=== PATIENT | female | born 1950 | race American Indian/Alaskan Native ===

== ENCOUNTER 2017-08-26 16:33 | Inpatient (IN) | payer BC ==
--- NOTE | 2017-08-26 17:50 | Emergency Department Report ---
ED Dizziness HPI - General Chief Complaint: Dizziness Stated Complaint: ELEVATED BLOOD PRESSURE Time Seen by Provider: 08/26/17 16:59 Source: patient Mode of arrival: Ambulatory Limitations: No Limitations - History of Present Illness Initial Comments: Chief complaint dizziness History of present illness 67-year-old female history of high blood pressure has chronic kidney disease was at PCP this a.m. when had elevated blood pressure 200 over something PCP gave clonidine patient started getting dizzy was sent to ED for further evaluation patient denies chest pain denies focal neural complaints denies stiff neck or headache no sob no chest pain here stating that she wants to be checked because she was feeling a little dizzy after the blood pressure pills were given, pt is ckd and is in process of starting hd pmh:ckd htn sh no drug use ros complete review of systems otherwise negative review of systems no headache no stiff neck no chest pain mildly short of breath has swelling no exertional symptoms Physical exam Vital signs were 230/106 and the PCP repeat now after 2 of clonidine is 115/63 Generally she is awake alert oriented 3 nontoxic and afebr HEENT negative EOMI PERRLA Neck supple Chest mild crackle no distress Cardiac S1-S2 without murmur Abdomen soft nontender without mass Extremities are without clubbing cyanosis or edema Neuro strength is equal bilaterally sensory grossly nonfocal cranial nerves II- 12 intact no cerebellar fipsych nl Skin exam was noncontributory unremarkable ED course Case was discussed with Dr. Lamine ESCAMILLA [facility] for admission patient did have elevated potassium with evidence of uremia and elevated BUN/creatinine and is likely now a candidate for dialysis Clinical impression is end stage renal disease #1 #2 hyperkalemia Disposition is admitted Complaint: dizziness -: Gradual, This afternoon History of Same: No History of Trauma: No Severity: Unable to Determine Associated Symptoms: denies other symptoms - Related Data Allergies Allergy/AdvReac Type Severity Reaction Status Date / Time No Known Allergies Allergy Unverified 08/26/17 16:35 ED Review of Systems ROS: Stated complaint: ELEVATED BLOOD PRESSURE Other details as noted in HPI ED Past Medical Hx - Past Medical History Previous Medical History?: Yes Hx Hypertension: Yes Hx Diabetes: Yes Hx Renal Disease: Yes Additional medical history: high cholestrol - Surgical History Past Surgical History?: Yes Additional Surgical History: foot surgery ED Physical Exam - General Limitations: No Limitations ED Course Vital Signs 08/26/17 08/26/17 08/26/17 16:33 16:35 17:44 Temperature 97.5 F L Pulse Rate 72 75 83 Respiratory 16 18 21 Rate Blood Pressure 146/60 146/60 O2 Sat by Pulse 100 100 Oximetry 08/26/17 17:45 Temperature Pulse Rate 84 Respiratory 20 Rate Blood Pressure O2 Sat by Pulse Oximetry - Reevaluation(s) Reevaluation #1: 08/26/17 19:30 pt was given kayex and d50 and insulin given elev K+, pt is admitted dr servin ED Medical Decision Making - Lab Data Result diagrams: 08/26/17 17:12 08/26/17 17:12 - EKG Data -: EKG Interpreted by Me EKG shows normal: sinus rhythm - EKG Data Interpretation: nonspecific ST-T wave janey - Radiology Data Radiology results: image reviewed interpreted by me: no infiltates Critical care attestation.: If time is entered above; I have spent that time in minutes in the direct care of this critically ill patient, excluding procedure time. ED Disposition Clinical Impression: Hyperkalemia, ESRD (end stage renal disease) Disposition: OP ADMIT IP TO THIS HOSP Is pt being admited?: Yes Does the pt Need Aspirin: No Condition: Stable Referrals: MAYNOR PEÑA MD [Primary Care Provider] - 3-5 Days Time of Disposition: 19:31
[2017-08-26 17:54] LABS: Eosinophils % (Auto) 3.9 % (0.0-4.3); Hematocrit 25.4 % (30.3-42.9); Hemoglobin 8.2 gm/dl (10.1-14.3); Mean Corpuscular HGB Conc 32 % (30-34); Mean Corpuscular Hemoglobin 28 pg (28-32); Mean Corpuscular Volume 86 fl (79-97); Platelet Count 376 K/mm3 (140-440); Red Blood Count 2.96 M/mm3 (3.65-5.03); Red Cell Distribution Width 18.1 % (13.2-15.2); White Blood Count 6.3 K/mm3 (4.5-11.0)
[2017-08-26 18:11] LABS: Calcium 6.5 mg/dL (8.4-10.2); Chloride 98.4 mmol/L (98-107); Potassium 5.4 mmol/L (3.6-5.0)
--- NOTE | 2017-08-26 18:17 | XRay Report ---
FINAL REPORT PROCEDURE: Chest. TECHNIQUE: PA and lateral views. HISTORY: Dizziness. COMPARISON: No prior studies are available for comparison. FINDINGS: The heart size is normal. There is mild tortuosity of the thoracic aorta. The lungs are clear and well expanded. There are no pleural effusions. The soft tissues and regional skeleton are unremarkable. IMPRESSION: No evidence of acute disease.
[2017-08-26] MEDS ORDERED: PROVENTIL IH ONE (18:28)
[2017-08-26] MEDS ORDERED: D50W (25GM) Syringe IV ONE ×2 (18:29→20:07)
[2017-08-26] MEDS ORDERED: KIONEX PO ONE (18:30)
--- NOTE | 2017-08-26 19:41 | History and Physical Report ---
History of Present Illness Date of examination: 08/26/17 Date of admission: 08/26/17 Chief complaint: Dizziness 1 day History of present illness: 67 y/o Female with Hx of Htn CKD stg5 going on to ESRD comes in for feeling Dizzy.Went to her pcp and was found to have Mp of 230/130.Was sent here for Eval.Per Nephro;nithin notes patient is due for vascath as out patient and possible HD KRYSTAL. Sob present. No Chest pain Past History Past Medical History: diabetes, ESRD, hypertension, renal failure Social history: no significant social history, full code Family history: hypertension Medications and Allergies Allergies Allergy/AdvReac Type Severity Reaction Status Date / Time No Known Allergies Allergy Unverified 08/26/17 16:35 Home Medications Medication Instructions Recorded Confirmed Last Taken Type Insulin Aspart [Novolog] See Protocol SQ AC 08/26/17 08/26/17 Unknown History Insulin Glargine,Hum.rec.anlog 25 units SQ QHS 08/26/17 08/26/17 Unknown History [Lantus] amLODIPine [Norvasc] 5 mg PO DAILY 08/26/17 08/26/17 Unknown History hydrALAZINE [Apresoline] 50 mg PO QDAY 08/26/17 08/26/17 Unknown History Review of Systems All systems: negative Exam - Constitutional Vitals: Temp Pulse Resp BP Pulse Ox 97.5 F L 84 20 146/60 100 08/26/17 16:35 08/26/17 17:45 08/26/17 17:45 08/26/17 16:35 08/26/17 16:35 General appearance: Present: no acute distress, well-nourished - EENT Eyes: Present: PERRL ENT: hearing intact, clear oral mucosa - Neck Neck: Present: supple, normal ROM - Respiratory Respiratory effort: normal Respiratory: bilateral: CTA - Cardiovascular Heart Sounds: Present: S1 & S2. Absent: rub, click - Extremities Extremities: pulses symmetrical, No edema Peripheral Pulses: within normal limits - Abdominal General gastrointestinal: Present: soft, non-tender, non-distended, normal bowel sounds Female genitourinary: Present: normal - Integumentary Integumentary: Present: clear, warm, dry - Musculoskeletal Musculoskeletal: gait normal, strength equal bilaterally - Psychiatric Psychiatric: appropriate mood/affect, intact judgment & insight - Neurologic Neurologic: CNII-XII intact, moves all extremities Results - Labs CBC & Chem 7: 08/27/17 04:47 08/27/17 04:47 Labs: Laboratory Last Values WBC 6.3 K/mm3 (4.5-11.0) 08/26/17 17:12 RBC 2.96 M/mm3 (3.65-5.03) L 08/26/17 17:12 Hgb 8.2 gm/dl (10.1-14.3) L 08/26/17 17:12 Hct 25.4 % (30.3-42.9) L 08/26/17 17:12 MCV 86 fl (79-97) 08/26/17 17:12 MCH 28 pg (28-32) 08/26/17 17:12 MCHC 32 % (30-34) 08/26/17 17:12 RDW 18.1 % (13.2-15.2) H 08/26/17 17:12 Plt Count 376 K/mm3 (140-440) 08/26/17 17:12 Lymph % (Auto) 18.3 % (13.4-35.0) 08/26/17 17:12 Wayne % (Auto) 8.7 % (0.0-7.3) H 08/26/17 17:12 Eos % (Auto) 3.9 % (0.0-4.3) 08/26/17 17:12 Baso % (Auto) 1.0 % (0.0-1.8) 08/26/17 17:12 Lymph # 1.1 K/mm3 (1.2-5.4) L 08/26/17 17:12 Wayne # 0.5 K/mm3 (0.0-0.8) 08/26/17 17:12 Eos # 0.2 K/mm3 (0.0-0.4) 08/26/17 17:12 Baso # 0.1 K/mm3 (0.0-0.1) 08/26/17 17:12 Seg Neutrophils % 68.1 % (40.0-70.0) 08/26/17 17:12 Seg Neutrophils # 4.3 K/mm3 (1.8-7.7) 08/26/17 17:12 Sodium 132 mmol/L (137-145) L 08/26/17 17:12 Potassium 5.4 mmol/L (3.6-5.0) H 08/26/17 17:12 Chloride 98.4 mmol/L (98-107) 08/26/17 17:12 Carbon Dioxide 11 mmol/L (22-30) L 08/26/17 17:12 Anion Gap 28 mmol/L 08/26/17 17:12 BUN 89 mg/dL (7-17) H 08/26/17 17:12 Creatinine 9.9 mg/dL (0.7-1.2) H 08/26/17 17:12 Estimated GFR 5 ml/min 08/26/17 17:12 BUN/Creatinine Ratio 9 % 08/26/17 17:12 Glucose 168 mg/dL (65-100) H 08/26/17 17:12 Calcium 6.5 mg/dL (8.4-10.2) L 08/26/17 17:12 Troponin T 0.069 ng/mL (0.00-0.029) H 08/26/17 17:12 Triglycerides 343 mg/dL (2-149) H 08/26/17 17:12 Cholesterol 175 mg/dL (50-199) 08/26/17 17:12 LDL Cholesterol Direct 79 mg/dL (50-130) 08/26/17 17:12 HDL Cholesterol 28 mg/dL (40-59) L 08/26/17 17:12 Cholesterol/HDL Ratio 6.25 % 08/26/17 17:12 Short CBC 08/26/17 08/27/17 Range/Units 17:12 04:47 WBC 6.3 6.0 (4.5-11.0) K/mm3 Hgb 8.2 L 7.1 L (10.1-14.3) gm/dl Hct 25.4 L 21.0 L (30.3-42.9) % Plt Count 376 294 (140-440) K/mm3 [facility] 08/26/17 08/27/17 17:12 04:47 Sodium 132 L 137 Potassium 5.4 H 4.8 Chloride 98.4 103.3 Carbon Dioxide 11 L 13 L BUN 89 H 86 H Creatinine 9.9 H 9.9 H Glucose 168 H 155 H Calcium 6.5 L 6.9 L Cardiac Enzymes 08/26/17 08/26/1708/26/17 Range/Units 17:12 19:26 23:09 Troponin T 0.069 H 0.074 H 0.058 H D (0.00-0.029) ng/mL Liver Function 08/27/17 Range/Units 04:47 Total Bilirubin 0.20 (0.1-1.2) mg/dL AST 13 (5-40) units/L ALT 16 (7-56) units/L Alkaline Phosphatase 127 (35-129) units/L Albumin 3.1 L (3.9-5) g/dL - Imaging and Cardiology EKG: report reviewed Chest x-ray: report reviewed Assessment and Plan Advance Directives: Yes (full code) VTE prophylaxis?: Chemical Plan of care discussed with patient/family: Yes - Patient Problems (1) Hypertensive emergency Current Visit: Yes Status: Acute Plan to address problem: Added Carvediol Increased Hydralazine from once a day to q8h.Also increased Amlodipine to 10 mg po qd (2) Hyperkalemia Current Visit: Yes Status: Acute Plan to address problem: Was given Kayexalate and Clacium gluconate in Er (3) ESRD needing dialysis Current Visit: Yes Status: Chronic Plan to address problem: Patient needs emergent HD Renal and Vascular consulted for HD and Vascath respectively (4) IDDM (insulin dependent diabetes mellitus) Current Visit: Yes Status: Chronic Plan to address problem: Cont Home insulin and coverage (5) Elevated troponin level Current Visit: Yes Status: Chronic Plan to address problem: Sec to ESRD (6) Mixed hyperglyceridemia Current Visit: Yes Status: Chronic Plan to address problem: Added Fenofibrate (7) DVT prophylaxis Current Visit: Yes Status: Acute Plan to address problem: On Heparin
[2017-08-26] MEDS ORDERED: PERCOCET 5/325 PO PRN (19:47)
[2017-08-26] MEDS ORDERED: MILK OF MAGNESIA PO PRN (19:47)
[2017-08-26] MEDS ORDERED: DULCOLAX PR PRN (19:47)
[2017-08-26] MEDS ORDERED: MORPHINE IV PRN (19:47)
[2017-08-26] MEDS ORDERED: ZOFRAN IV PRN (19:47)
[2017-08-26] MEDS ORDERED: TYLENOL PO PRN (19:47)
[2017-08-26] MEDS ORDERED: NACL 0.9% 500 ML 500 ML IV ONE (20:07)
[2017-08-26] MEDS ORDERED: CALCIUM GLUCONATE 2,000 MG in NACL 0.9% 100 ML IV ONE (21:00)
[2017-08-26] MEDS: HEPARIN SUB-Q SCH (23:19)
[2017-08-27] MEDS ORDERED: APRESOLINE IV PRN (05:15)
[2017-08-27 06:01] LABS: Basophils % (Auto) 0.7 % (0.0-1.8); Eosinophils % (Auto) 1.4 % (0.0-4.3); Hemoglobin 7.1 gm/dl (10.1-14.3); Mean Corpuscular HGB Conc 34 % (30-34); Mean Corpuscular Hemoglobin 29 pg (28-32); Mean Corpuscular Volume 85 fl (79-97); Platelet Count 294 K/mm3 (140-440); Red Blood Count 2.48 M/mm3 (3.65-5.03); Red Cell Distribution Width 17.7 % (13.2-15.2)
[2017-08-27 06:28] LABS: Albumin 3.1 g/dL (3.9-5); Bilirubin,Total 0.2 mg/dL (0.1-1.2); Calcium 6.9 mg/dL (8.4-10.2); Chloride 103.3 mmol/L (98-107); Potassium 4.8 mmol/L (3.6-5.0); Total Protein 6.2 g/dL (6.3-8.2)
[2017-08-27] MEDS: NOVOLOG SUB-Q SCH ×4 (08:00→18:41)
[2017-08-27] MEDS ORDERED: APRESOLINE PO SCH (10:00)
[2017-08-27] MEDS ORDERED: NORVASC PO SCH (10:00)
[2017-08-27] MEDS: APRESOLINE PO SCH ×2 (10:58→18:41)
[2017-08-27] MEDS: NORVASC PO SCH (10:59)
[2017-08-27] MEDS: COREG PO SCH ×2 (11:00→21:37)
[2017-08-27] MEDS: HEPARIN SUB-Q SCH ×2 (11:00→21:36)
[2017-08-27] MEDS ORDERED: PNEUMOVAX 23 IM ONE (12:00)
--- NOTE | 2017-08-27 13:25 | Progress Note ---
Assessment and Plan /Hypertensive emergency Added Carvediol Increased Hydralazine from once a day to q8h. Also increased Amlodipine to 10 mg po qd cont to monitor BP meds and adjust as needed / Hyperkalemia due to renal failure Was given Kayexalate and Clacium gluconate in Er now improved /ESRD needing dialysis Patient may needs emergent HD Renal and Vascular consulted for HD and Vascath respectively /IDDM (insulin dependent diabetes mellitus) Cont Home insulin dose coverage /Elevated troponin level Sec to ESRD, denies any chest pain cont to trend, obtain 2d echo / Mixed hyperlipidemia Added Fenofibrate /DVT prophylaxis On Heparin Brief History: 67 y/o Female with Hx of Htn CKD stage 5 going on to ESRD Went to her pcp as she was feeling dizzy and was found to have BP of 230/130. She Was sent here for further Eval. Per Nephroogy notes patient is due for vascath as out patient and possible HD [facility]. Physical exam: General appearance: Present: no acute distress, well-nourished - EENT Eyes: Present: PERRL ENT: hearing intact, clear oral mucosa - Neck Neck: Present: supple, normal ROM - Respiratory Respiratory effort: normal Respiratory: bilateral: CTA - Cardiovascular Heart Sounds: Present: S1 & S2. Absent: rub, click - Extremities Extremities: pulses symmetrical, No edema Peripheral Pulses: within normal limits - Abdominal General gastrointestinal: Present: soft, non-tender, non-distended, normal bowel sounds Female genitourinary: Present: normal - Integumentary Integumentary: Present: clear, warm, dry - Musculoskeletal Musculoskeletal: gait normal, strength equal bilaterally - Psychiatric Psychiatric: appropriate mood/affect, intact judgment & insight - Neurologic Neurologic: CNII-XII intact, moves all extremities Subjective Date of service: 08/27/17 Interval history: Pt seen and examined updated family at bedside renal consult pending BP much improved, denies any chest pain Objective - Constitutional Vitals: Vital Signs - 12hr 08/27/17 08/27/17 08/27/17 04:28 09:12 10:58 Temperature 98.8 F 98.9 F Pulse Rate 92 H 92 H 92 H Respiratory 18 18 Rate Blood Pressure 181/82 157/67 Blood Pressure 157/67 [Right] O2 Sat by Pulse 98 99 Oximetry 08/27/17 08/27/17 10:59 13:05 Temperature 98.2 F Pulse Rate 99 H Respiratory 20 Rate Blood Pressure 157/67 Blood Pressure 136/60 [Right] O2 Sat by Pulse 99 Oximetry - Labs CBC & Chem 7: 08/28/17 06:20 08/28/17 06:20 Labs: Abnormal lab results 08/26/17 08/26/17 08/26/17 Range/Units 16:42 17:12 17:12 RBC 2.96 L (3.65-5.03) M/mm3 Hgb 8.2 L (10.1-14.3) gm/dl Hct 25.4 L (30.3-42.9) % RDW 18.1 H (13.2-15.2) % Daniels % (Auto) 8.7 H (0.0-7.3) % Lymph # 1.1 L (1.2-5.4) K/mm3 Sodium 132 L (137-145) mmol/L Potassium 5.4 H (3.6-5.0) mmol/L Carbon Dioxide 11 L (22-30) mmol/L BUN 89 H (7-17) mg/dL Creatinine 9.9 H (0.7-1.2) mg/dL Glucose 168 H (65-100) mg/dL POC Glucose 202 H (70-105) Hemoglobin A1c (4-6) % Calcium 6.5 L (8.4-10.2) mg/dL Troponin T 0.069 H (0.00-0.029) ng/mL Total Protein (6.3-8.2) g/dL Albumin (3.9-5) g/dL Triglycerides 343 H (2-149) mg/dL HDL Cholesterol 28 L (40-59) mg/dL 08/26/17 08/26/17 08/26/17 Range/Units 17:12 19:26 19:39 RBC (3.65-5.03) M/mm3 Hgb (10.1-14.3) gm/dl Hct (30.3-42.9) % RDW (13.2-15.2) % Daniels % (Auto) (0.0-7.3) % Lymph # (1.2-5.4) K/mm3 Sodium (137-145) mmol/L Potassium (3.6-5.0) mmol/L Carbon Dioxide (22-30) mmol/L BUN (7-17) mg/dL Creatinine (0.7-1.2) mg/dL Glucose (65-100) mg/dL POC Glucose 194 H (70-105) Hemoglobin A1c 6.7 H (4-6) % Calcium (8.4-10.2) mg/dL Troponin T 0.074 H (0.00-0.029) ng/mL Total Protein (6.3-8.2) g/dL Albumin (3.9-5) g/dL Triglycerides (2-149) mg/dL HDL Cholesterol (40-59) mg/dL 08/26/17 08/26/17 08/27/17 Range/Units 20:12 23:09 04:47 RBC 2.48 L (3.65-5.03) M/mm3 Hgb 7.1 L (10.1-14.3) gm/dl Hct 21.0 L (30.3-42.9) % RDW 17.7 H (13.2-15.2) % Daniels % (Auto) 9.1 H (0.0-7.3) % Lymph # (1.2-5.4) K/mm3 Sodium (137-145) mmol/L Potassium (3.6-5.0) mmol/L Carbon Dioxide (22-30) mmol/L BUN (7-17) mg/dL Creatinine (0.7-1.2) mg/dL Glucose (65-100) mg/dL POC Glucose 177 H (70-105) Hemoglobin A1c (4-6) % Calcium (8.4-10.2) mg/dL Troponin T 0.058 H D (0.00-0.029) ng/mL Total Protein (6.3-8.2) g/dL Albumin (3.9-5) g/dL Triglycerides (2-149) mg/dL HDL Cholesterol (40-59) mg/dL 08/27/17 08/27/17 Range/Units 04:47 09:03 RBC (3.65-5.03) M/mm3 Hgb (10.1-14.3) gm/dl Hct (30.3-42.9) % RDW (13.2-15.2) % Daniels % (Auto) (0.0-7.3) % Lymph # (1.2-5.4) K/mm3 Sodium (137-145) mmol/L Potassium (3.6-5.0) mmol/L Carbon Dioxide 13 L (22-30) mmol/L BUN 86 H (7-17) mg/dL Creatinine 9.9 H (0.7-1.2) mg/dL Glucose 155 H (65-100) mg/dL POC Glucose 112 H (70-105) Hemoglobin A1c (4-6) % Calcium 6.9 L (8.4-10.2) mg/dL Troponin T (0.00-0.029) ng/mL Total Protein 6.2 L (6.3-8.2) g/dL Albumin 3.1 L (3.9-5) g/dL Triglycerides (2-149) mg/dL HDL Cholesterol (40-59) mg/dL
[2017-08-27] MEDS: LEVEMIR SUB-Q SCH (21:38)
[2017-08-27] MEDS ORDERED: INSULIN GLARGINE HUM REC ANLOG 25 UNIT SQ SCH (22:00)
[2017-08-28] MEDS: APRESOLINE PO SCH ×3 (02:00→20:31)
[2017-08-28 06:43] LABS: Basophils % (Auto) 0.8 % (0.0-1.8); Eosinophils % (Auto) 3.1 % (0.0-4.3); Hematocrit 24.8 % (30.3-42.9); Mean Corpuscular HGB Conc 32 % (30-34); Mean Corpuscular Hemoglobin 28 pg (28-32); Mean Corpuscular Volume 86 fl (79-97); Platelet Count 312 K/mm3 (140-440); Red Blood Count 2.89 M/mm3 (3.65-5.03); Red Cell Distribution Width 18.5 % (13.2-15.2); White Blood Count 6.4 K/mm3 (4.5-11.0)
[2017-08-28 07:06] LABS: Calcium 6.5 mg/dL (8.4-10.2); Chloride 104.3 mmol/L (98-107); Potassium 4.8 mmol/L (3.6-5.0)
--- NOTE | 2017-08-28 09:59 | Consultation ---
History of Present Illness - History of Present Illness thank you for the consultation Patient was evaluated today Consultation report dictated patient well known to me Assessment and plan End-stage renal disease: Patient is a need for renal replacement therapy with a permacath subsequent to which she will also need a fistula created this admission to avoid infections resulting from permacath patient has been adequately counseled and educated so has her granddaughter patient is very noncompliant did not show after family care physician's office also did not come back for follow-up in our office was noted to have a creatinine of 10 with some symptoms of renal failure Anemia and renal failure: Erythropoietin with hemodialysis workup of renal failure as well as anemia Long-standing hypertension diabetes likely resulting in renal failure Outpatient dialysis unit will be at [facility] as patient lives closer to that and she wants to continue seeing her urologist and chooses to go to that facility, given choices Secondary hyperparathyroidism: To monitor and follow Patient receive adequate calcium education regarding end-stage renal disease, diet plan, lifestyle changes, need to initiate renal replacement therapy and Y, catheter care will discuss patient was also advised to consider fistula creation She is not a candidate for home therapy at this time knowing that she has been extremely noncompliant Past History Past Medical History: diabetes, ESRD, hypertension, renal failure Social history: no significant social history, full code Family history: hypertension Medications and Allergies Allergies Allergy/AdvReac Type Severity Reaction Status Date / Time No Known Allergies Allergy Unverified 08/26/17 16:35 Home Medications Medication Instructions Recorded Confirmed Last Taken Type Insulin Aspart [Novolog] See Protocol SQ AC 08/26/17 08/26/17 Unknown History Insulin Glargine,Hum.rec.anlog 25 units SQ QHS 08/26/17 08/26/17 Unknown History [Lantus] amLODIPine [Norvasc] 5 mg PO DAILY 08/26/17 08/26/17 Unknown History hydrALAZINE [Apresoline] 50 mg PO QDAY 08/26/17 08/26/17 Unknown History Active Meds: Active Medications Acetaminophen (Tylenol) 650 mg PO Q4H PRN PRN Reason: Pain MILD(1-3)/Fever >100.5/SOSA Amlodipine Besylate (Norvasc) 10 mg PO DAILY MURALI Last Admin: 08/27/17 10:59 Dose: 10 mg Bisacodyl (Dulcolax) 10 mg OR QDAY PRN PRN Reason: Constipation unrelieved by MOM Carvedilol (Coreg) 6.25 mg PO BID [facility] Last Admin: 08/27/17 21:37 Dose: 6.25 mg Heparin Sodium (Porcine) (Heparin) 5,000 unit SUB-Q Q12HR [facility] Last Admin: 08/27/17 21:36 Dose: 5,000 unit Hydralazine HCl (Apresoline) 5 mg IV Q6H PRN PRN Reason: Hypertension Hydralazine HCl (Apresoline) 50 mg PO Q8H [facility] Last Admin: 08/28/17 02:00 Dose: Not Given Insulin Aspart (Novolog) 0 units SUB-Q AC [facility] PRN Reason: Protocol Last Admin: 08/27/17 18:41 Dose: Not Given Insulin Detemir (Levemir) 25 units SUB-Q QHS [facility] Last Admin: 08/27/17 21:38 Dose: 25 units Magnesium Hydroxide (Milk Of Magnesia) 30 ml PO Q4H PRN PRN Reason: Constipation Morphine Sulfate (Morphine) 2 mg IV Q4H PRN PRN Reason: Pain, Moderate (4-6) Ondansetron HCl (Zofran) 4 mg IV Q8H PRN PRN Reason: N/V unrelieved by Reglan Oxycodone/Acetaminophen (Percocet 5/325) 1 tab PO Q6H PRN PRN Reason: Pain, Moderate (4-6) Pneumococcal Polyvalent Vaccine (Pneumovax 23) 0.5 ml IM .ONCE ONE Stop: 08/28/17 12:01 Exam - Vital Signs Vital signs: Vital Signs Pulse Resp BP Pulse Ox 72 16 146/60 100 08/26/17 16:33 08/26/17 16:33 08/26/17 16:33 08/26/17 16:33 Results - Lab Results 08/28/17 06:20 08/28/17 06:20 Most recent lab results Calcium 6.5 mg/dL (8.4-10.2) L 08/28/17 06:20
[2017-08-28] MEDS ORDERED: NACL 0.9% 100 ML IV PRN (10:30)
[2017-08-28] MEDS ORDERED: PNEUMOVAX 23 IM ONE (12:00)
[2017-08-28] MEDS: COREG PO SCH ×2 (13:20→22:15)
[2017-08-28] MEDS: HEPARIN SUB-Q SCH ×2 (13:33→22:23)
[2017-08-28] MEDS: NORVASC PO SCH (14:05)
[2017-08-28] MEDS: NOVOLOG SUB-Q SCH ×3 (14:07→20:31)
--- NOTE | 2017-08-28 15:51 | Progress Note ---
Assessment and Plan /Hypertensive emergency Added Carvediol Increased Hydralazine from once a day to q8h. Also increased Amlodipine to 10 mg po qd cont to monitor BP meds and adjust as needed / Hyperkalemia due to renal failure Was given Kayexalate and Clacium gluconate in Er now improved /ESRD needing dialysis Patient needs emergent HD Renal and Vascular consulted for HD and Vascath respectively Outpatient dialysis unit will be at [facility] as patient lives closer to that and she wants to continue seeing her urologist and chooses to go to that facility, given choices /IDDM (insulin dependent diabetes mellitus) Cont Home insulin dose coverage /Elevated troponin level Sec to ESRD, denies any chest pain cont to trend, 2d echo showed preserved EF / Mixed hyperlipidemia Added Fenofibrate /DVT prophylaxis On Heparin Brief History: 67 y/o Female with Hx of Htn CKD stage 5 going on to ESRD Went to her pcp as she was feeling dizzy and was found to have BP of 230/130. She Was sent here for further Eval. Per Nephroogy notes patient is due for vascat as out patient and possible HD KRYSTAL. Physical exam: General appearance: Present: no acute distress, well-nourished - EENT Eyes: Present: PERRL ENT: hearing intact, clear oral mucosa - Neck Neck: Present: supple, normal ROM - Respiratory Respiratory effort: normal Respiratory: bilateral: CTA - Cardiovascular Heart Sounds: Present: S1 & S2. Absent: rub, click - Extremities Extremities: pulses symmetrical, No edema Peripheral Pulses: within normal limits - Abdominal General gastrointestinal: Present: soft, non-tender, non-distended, normal bowel sounds Female genitourinary: Present: normal - Integumentary Integumentary: Present: clear, warm, dry - Musculoskeletal Musculoskeletal: gait normal, strength equal bilaterally - Psychiatric Psychiatric: appropriate mood/affect, intact judgment & insight - Neurologic Neurologic: CNII-XII intact, moves all extremities Subjective Date of service: 08/28/17 Interval history: Pt seen and examined updated family at bedside plan to start HD from tomorrow after vascular access placement BP much improved, denies any chest pain Objective - Constitutional Vitals: Vital Signs - 12hr 08/28/17 08/28/17 08/28/17 05:00 05:26 13:20 Temperature 98.6 F Pulse Rate 80 72 84 Respiratory 18 Rate Blood Pressure 149/70 O2 Sat by Pulse 99 Oximetry 08/28/17 08/28/17 13:26 14:05 Temperature Pulse Rate 88 80 Respiratory Rate Blood Pressure 179/83 O2 Sat by Pulse Oximetry - Labs CBC & Chem 7: 08/28/17 06:20 08/28/17 06:20 Labs: Abnormal lab results 08/27/17 08/27/17 08/28/17 Range/Units 11:02 21:41 06:20 RBC 2.89 L (3.65-5.03) M/mm3 Hgb 8.0 L (10.1-14.3) gm/dl Hct 24.8 L (30.3-42.9) % RDW 18.5 H (13.2-15.2) % Florence % (Auto) 8.3 H (0.0-7.3) % Lymph # 1.1 L (1.2-5.4) K/mm3 Seg Neutrophils % 70.6 H (40.0-70.0) % Carbon Dioxide (22-30) mmol/L BUN (7-17) mg/dL Creatinine (0.7-1.2) mg/dL POC Glucose 219 H 231 H (70-105) Calcium (8.4-10.2) mg/dL 08/28/17 08/28/17 Range/Units 06:20 12:17 RBC (3.65-5.03) M/mm3 Hgb (10.1-14.3) gm/dl Hct (30.3-42.9) % RDW (13.2-15.2) % Florence % (Auto) (0.0-7.3) % Lymph # (1.2-5.4) K/mm3 Seg Neutrophils % (40.0-70.0) % Carbon Dioxide 14 L (22-30) mmol/L BUN 93 H (7-17) mg/dL Creatinine 10.3 H (0.7-1.2) mg/dL POC Glucose 174 H (70-105) Calcium 6.5 L (8.4-10.2) mg/dL
[2017-08-28] MEDS: LEVEMIR SUB-Q SCH (22:15)
--- NOTE | 2017-08-28 22:54 | Consultation ---
TIME OF SERVICE: Around 10:00 in the morning. PERSON ASKING FOR CONSULTATION: Dr. Lyla Mireles REASON FOR CONSULTATION: Management of end-stage renal disease in a patient who is admitted here with uncontrolled hypertension. SOURCE OF INFORMATION: From herself as electronic records were reviewed. HISTORY OF PRESENT ILLNESS: The patient is a 67-year-old, very poorly compliant, -[place] patient who has been followed by Dr. Manuel for her routine healthcare. The patient did not go for followup for several months, but was followed by hematology, Dr. NIX who was giving her erythropoietin injection periodically. The patient was noted to have a creatinine of recently around 10 for which she was seen by Dr. Mcclendon, my partner, suggested her to come to the ER. The patient was seen here on Tuesday and then went home. Currently, she has been admitted here with the issues with blood pressure. The patient's estimated GFR is only 4 mL per minute and she is in immediate need for renal replacement therapy. Overtime, the patient has been feeling fatigued, tired and weak. She does not have any metallic taste, nausea and vomiting yet or at least she denies. The patient has been fully educated about the severity of renal failure and need to initiate renal replacement therapy in my previous discussion, which included catheter placement, fistula creation, hemodialysis and all the related process including dietary education. The patient still says that she feels fine and there is nothing wrong with her. PAST MEDICAL HISTORY: Significant for 1. Chronic noncompliance despite counseling and education. Discussed with her treating physicians core blower, Dr. Christianson who has been very concerned about her noncompliance, progressive renal failure and called us for the patient to be seen in the office as she refused to come to ER. 2. Diabetes mellitus type 2. 3. Hypertension. 4. Hyperlipidemia. CURRENT ALLERGIES: Reviewed. HOME MEDICATIONS: Reviewed. SOCIAL HISTORY: No recent history of alcohol, drugs, or tobacco use. FAMILY HISTORY: Essentially noncontributory for renal related disorder. REVIEW OF SYSTEMS: Positive for fatigue, weakness and feeling cold. No complaints of any nausea or vomiting yet, or at least the patient denies. Complete review of other systems are obtained, pertinent positive as mentioned above. Other review of systems negative. PHYSICAL EXAMINATION: GENERAL: The patient is a pleasant 67-year-old -[place] female who is lying comfortably in bed, does not appear in acute distress. Her granddaughter is at bedside. VITAL SIGNS: Reviewed from this admission. HEENT: Normocephalic, atraumatic skull. Extraocular movements intact. Moderate pallor present. Some uremic odor. NECK: Supple without thyromegaly. No mass or JVD. CHEST: Few faint basilar crackles. HEART: Regular rate and rhythm. S1, S2 are noted. ABDOMEN: Soft, nontender. No suprapubic masses. No CVA tenderness. EXTREMITIES: Reveals the patient does have 1+ edema and dry skin, some scratches. NEUROLOGIC: Alert, awake, oriented x 4. No asterixes present. LABORATORY DATA: Labs and x-rays were reviewed from this admission. ASSESSMENT AND PLAN: 1. End-stage renal disease in a patient who is a 67-year-old with EGFR of 4 mL per minute with anemia, fatigue and feeling cold. No nausea, vomiting yet. The patient is in immediate need for renal replacement therapy. She has received full counseling education regarding end-stage renal disease, catheter placement, fistula creation, diet plan has been discussed with the patient. Outpatient dialysis can be continued at [facility] per patient's choice as this facility is closer to where she lives and she wants to continue with our care. 2. Hypertension, will be difficult to control. We will adjust medications. 3. Anemia due to worsening renal failure over time, erythropoietin, further workup of anemia, iron, B12 and folic acid, retic count. 4. Diabetes type 2. Counseling and education was done. Diet plan was discussed, to follow up with her primary care physician upon discharge. We had a lengthy discussion with the patient as well as her granddaughter at bedside who broke in tears after knowing that her grandmother had such severe degree of renal failure. We also did discuss diet plan, lifestyle changes that are required. All questions pertinent to renal care were discussed and addressed today at bedside. Need for timely initiation of renal replacement therapy was also discussed with them. All questions were answered. Catheter-related bacteremia, infection, sepsis was also discussed which could be a possibility in the future as the patient never got a fistula and has not been compliant. This is needed at this admission to initiate her renal replacement therapy. Given that she is noncompliant at this time, I would like to abstain from peritoneal dialysis until the compliance has improved or resolved though she has been educated about peritoneal dialysis as well. Potentially she could be a transplant candidate but that time will tell. I will consult Vascular Surgery for a Perm-A-Cath as well as fistula placement in the meantime. Arrange for hemodialysis tomorrow morning. We will continue to follow and make recommendations from renal standpoint. JOB# [id number] EBONY/NTS
[2017-08-29] MEDS: APRESOLINE PO SCH ×3 (02:27→18:00)
[2017-08-29] MEDS: NOVOLOG SUB-Q SCH ×3 (07:30→16:30)
[2017-08-29 07:31] LABS: Calcium 6.3 mg/dL (8.4-10.2); Chloride 102.6 mmol/L (98-107); Potassium 4.7 mmol/L (3.6-5.0)
[2017-08-29] MEDS ORDERED: HEPARIN/NS 5000 UNIT/500ML(CATH LAB) 500 ML IR ONE (08:52)
[2017-08-29] MEDS ORDERED: NACL 0.9% 250ML 250 ML ONE (08:52)
[2017-08-29] MEDS ORDERED: SUBLIMAZE ONE (08:52)
[2017-08-29] MEDS ORDERED: XYLOCAINE 2% INFILTRATI ONE (08:52)
[2017-08-29] MEDS ORDERED: VERSED ONE (08:52)
--- NOTE | 2017-08-29 09:22 | Consultation ---
History of Present Illness - Reason for Consult Consult date: 08/29/17 ESRD - History of Present Illness Patient with a history of end-stage renal disease who now requires dialysis. Patient with no mental status changes at time of examination. No specific complaints. Past History Past Medical History: diabetes, ESRD, hypertension, renal failure Social history: no significant social history, full code Family history: hypertension Medications and Allergies Allergies Allergy/AdvReac Type Severity Reaction Status Date / Time No Known Allergies Allergy Unverified 08/26/17 16:35 Home Medications Medication Instructions Recorded Confirmed Last Taken Type Insulin Aspart [Novolog] See Protocol SQ AC 08/26/17 08/26/17 Unknown History Insulin Glargine,Hum.rec.anlog 25 units SQ QHS 08/26/17 08/26/17 Unknown History [Lantus] amLODIPine [Norvasc] 5 mg PO DAILY 08/26/17 08/26/17 Unknown History hydrALAZINE [Apresoline] 50 mg PO QDAY 08/26/17 08/26/17 Unknown History Active Meds: Active Medications Acetaminophen (Tylenol) 650 mg PO Q4H PRN PRN Reason: Pain MILD(1-3)/Fever >100.5/SOSA Amlodipine Besylate (Norvasc) 10 mg PO DAILY [facility] Last Admin: 08/28/17 14:05 Dose: 10 mg Bisacodyl (Dulcolax) 10 mg CO QDAY PRN PRN Reason: Constipation unrelieved by MOM Carvedilol (Coreg) 6.25 mg PO BID [facility] Last Admin: 08/28/17 22:15 Dose: 6.25 mg Heparin Sodium (Porcine) (Heparin) 5,000 unit SUB-Q Q12HR [facility] Last Admin: 08/28/17 22:23 Dose: 5,000 unit Hydralazine HCl (Apresoline) 5 mg IV Q6H PRN PRN Reason: Hypertension Hydralazine HCl (Apresoline) 50 mg PO Q8H [facility] Last Admin: 08/29/17 02:27 Dose: 50 mg Sodium Chloride (Nacl 0.9%) 100 mls @ 999 mls/hr IV JANETTE PRN PRN Reason: Hypotension Insulin Aspart (Novolog) 0 units SUB-Q AC [facility] PRN Reason: Protocol Last Admin: 08/29/17 07:30 Dose: Not Given Insulin Detemir (Levemir) 25 units SUB-Q QHS [facility] Last Admin: 08/28/17 22:15 Dose: Not Given Magnesium Hydroxide (Milk Of Magnesia) 30 ml PO Q4H PRN PRN Reason: Constipation Morphine Sulfate (Morphine) 2 mg IV Q4H PRN PRN Reason: Pain, Moderate (4-6) Ondansetron HCl (Zofran) 4 mg IV Q8H PRN PRN Reason: N/V unrelieved by Reglan Oxycodone/Acetaminophen (Percocet 5/325) 1 tab PO Q6H PRN PRN Reason: Pain, Moderate (4-6) Review of Systems All systems: negative Exam - Constitutional Vitals: Temp Pulse Resp BP Pulse Ox 99.0 F 80 18 159/75 98 08/29/17 08:16 08/29/17 08:16 08/29/17 08:16 08/29/17 08:16 08/29/17 08:16 General appearance: Present: no acute distress - EENT Eyes: Present: PERRL, EOM intact ENT: hearing intact - Neck Neck: Present: supple, normal ROM - Respiratory Respiratory effort: normal - Extremities Extremities: no ischemia - Abdominal General gastrointestinal: Present: deferred Female genitourinary: Present: deferred - Rectal Rectal Exam: deferred - Psychiatric Psychiatric: appropriate mood/affect, cooperative Results - Labs CBC & Chem 7: 08/28/17 06:20 08/29/17 06:45 Labs: Abnormal lab results 08/28/17 08/28/17 08/29/17 Range/Units 12:17 16:36 06:45 Carbon Dioxide 13 L (22-30) mmol/L BUN 91 H (7-17) mg/dL Creatinine 10.3 H (0.7-1.2) mg/dL Glucose 118 H (65-100) mg/dL POC Glucose 174 H 264 H (70-105) Calcium 6.3 L (8.4-10.2) mg/dL 08/29/17 Range/Units 08:21 Carbon Dioxide (22-30) mmol/L BUN (7-17) mg/dL Creatinine (0.7-1.2) mg/dL Glucose (65-100) mg/dL POC Glucose 125 H (70-105) Calcium (8.4-10.2) mg/dL Assessment and Plan Patient with a history of end-stage renal disease who requires dialysis. Following placement of a PermCath today, the patient will undergo venous mapping in anticipation of either fistula creation or graft placement.
[2017-08-29] MEDS ORDERED: ANCEF/STERILE WATER 2 GM/20 ML 2 GM/20 ML SYRINGE IV ONE (09:26)
--- NOTE | 2017-08-29 09:29 | Progress Note ---
Assessment and Plan - Patient Problems (1) ESRD (end stage renal disease) Current Visit: Yes Status: Acute Plan to address problem: HD -first treatment today. Avoid hypotension. No needle sticks in left arm - save veis for AVF. Adjust meds per renal function. Outpt HD at [facility] per pt. (2) Metabolic acidosis Current Visit: Yes Status: Acute Plan to address problem: place on bicarb supplements (3) IDDM (insulin dependent diabetes mellitus) Current Visit: Yes Status: Chronic (4) HTN (hypertension) Current Visit: Yes Status: Acute (5) Hypocalcemia Current Visit: Yes Status: Acute Plan to address problem: check ionised Ca,P,PTH--place on Ca supplements (6) Hypoalbuminemia Current Visit: Yes Status: Acute Plan to address problem: increase dietary protein intake Subjective Date of service: 08/29/17 Interval history: alert, oriented, had IJ tunneled catheter today for initiation of HD Objective - Vital Signs Vital signs: Vital Signs - 12hr 08/28/17 08/29/17 08/29/17 23:56 05:02 08:16 Temperature 98.7 F 98.2 F 99.0 F Pulse Rate 84 82 80 Respiratory 18 18 18 Rate Blood Pressure 155/66 156/67 159/75 O2 Sat by Pulse 96 96 98 Oximetry - General Appearance General appearance: well-developed EENT: mucous membranes moist Neck: no JVD Respiratory: Present: Decreased Breath Sounds Cardiology: regular, systolic murmur Gastrointestinal: normoactive bowel sounds Neurologic: alert and oriented x3 Psychiatric: mood/affect appropriate, cooperative - Lab 08/28/17 06:20 08/29/17 06:45 Most recent lab results Calcium 6.3 mg/dL (8.4-10.2) L 08/29/17 06:45
[2017-08-29] MEDS: HEPARIN 10,000 UNITS/10 ML ONE ×3 (09:36→09:44)
--- NOTE | 2017-08-29 09:51 | Operative Report ---
Operative Report Operative Report: EXAM: ULTRASOUND AND FLUOROSCOPIC GUIDED PLACEMENT OF TUNNELED HEMODIALYSIS CATHETER CLINICAL INDICATION: END-STAGE RENAL DISEASE REQUIRING DIALYSIS ACCESS DATE: 08/29/2017 PROCEDURE: Following an explanation of the risks, benefits and alternatives; written informed consent was obtained. The patient was brought to the injury graphic suite and placed in supine position on the examination table. Initial ultrasound evaluation of the neck demonstrated a patent right internal jugular vein. The patient's right neck and chest wall were prepped and draped in the usual sterile fashion. 1% lidocaine was used for anesthesia. Under ultrasound guidance, the right internal jugular vein was cannulated with a 7 cm 18-gauge needle. A 0.035 guidewire was advanced into the IVC under fluoroscopy to document intravenous positioning. The needle was removed. An appropriate catheter exit site was chosen along the lateral right chest wall. 1% lidocaine was used for anesthesia at the catheter exit site and along the tunnel tract. A Bard 23 cm glidepath tunneled hemodialysis catheter was then tunneled antegrade from the catheter exit site to the venotomy site. Following serial dilation over the guidewire under fluoroscopy, a 16 [place] peel -away sheath was placed over the guidewire under fluoroscopy. The trocar and guidewire were removed and the catheter inserted through the peel-away sheath. The catheter would not advance past the level of the innominate vein. The guidewire was then reinserted through the catheter and advanced into the IVC and using the wire as an anchor, the catheter was able to be advanced more centrally. The peel-away sheath was then removed. The catheter was positioned with the tip in the proximal right atrium and the guidewire was removed. The venotomy was closed using 3-0 Vicryl suture and Dermabond. 3-0 Vicryl suture and Dermabond were also applied to the catheter exit site. Both ports flushed and aspirated easily and were then locked with appropriate volumes of heparin. The catheter was then sterilely dressed. The patient tolerated the procedure well. There were no immediate post procedure complications. Conscious sedation was performed under the guidance of radiologic nursing. Continuous cardiopulmonary monitoring was utilized. IMPRESSION: 1) Ultrasound and fluoroscopic guided placement of tunneled hemodialysis catheter via the right internal jugular vein.
[2017-08-29] MEDS: COREG PO SCH ×2 (13:25→21:51)
[2017-08-29] MEDS: NORVASC PO SCH (13:26)
[2017-08-29] MEDS: HEPARIN SUB-Q SCH ×2 (13:27→21:51)
--- NOTE | 2017-08-29 19:29 | Progress Note ---
Assessment and Plan - Hypertensive emergency Controlled Bp with Carvediol, Hydralazine from once a day to q8h and Amlodipine to 10 mg po qd cont to monitor BP meds and adjust as needed - Hyperkalemia corrected Was given Kayexalate and Clacium gluconate in Er - ESRD needing dialysis Patient needs emergent HD Had Vascular place today [facility]. HD commmmnece today Outpatient dialysis unit will be at [facility] as patient lives closer to that and she wants to continue seeing her urologist and chooses to go to that facility, given choices - IDDM (insulin dependent diabetes mellitus) SSI and Cont Home insulin dose coverage - Elevated troponin level Sec to ESRD, denies any chest pain cont to trend, 2d echo showed preserved EF - Mixed hyperlipidemia Added Fenofibrate -DVT prophylaxis On Heparin Subjective Date of service: 08/29/17 Principal diagnosis: Hypertensive emergency, ESRD commenceing HD Interval history: Denies any chest pain or shortness of breath Objective - Constitutional Vitals: Vital Signs - 12hr 08/29/17 08/29/17 08/29/17 08:16 11:55 16:27 Temperature 99.0 F 97.8 F Pulse Rate 80 78 83 Respiratory 18 18 18 Rate Blood Pressure 159/75 179/78 133/55 O2 Sat by Pulse 98 99 99 Oximetry General appearance: Present: no acute distress, well-nourished - EENT Eyes: PERRL, EOM intact - Neck Neck: supple, normal ROM - Respiratory Respiratory effort: normal Respiratory: bilateral: CTA - Breasts Breasts: normal - Cardiovascular Rhythm: regular Heart Sounds: Present: S1 & S2. Absent: gallop, rub Extremities: pulses intact, No edema, normal color, Full ROM - Gastrointestinal General gastrointestinal: Present: soft, non-tender, non-distended, normal bowel sounds - Integumentary Integumentary: clear, warm, dry - Musculoskeletal Musculoskeletal: 1, strength equal bilaterally - Neurologic Neurologic: moves all extremities - Psychiatric Psychiatric: memory intact, appropriate mood/affect, intact judgment & insight - Labs CBC & Chem 7: 08/28/17 06:20 08/29/17 06:45 Labs: Abnormal lab results 08/29/17 08/29/17 08/29/17 Range/Units 06:45 08:21 16:34 Carbon Dioxide 13 L (22-30) mmol/L BUN 91 H (7-17) mg/dL Creatinine 10.3 H (0.7-1.2) mg/dL Glucose 118 H (65-100) mg/dL POC Glucose 125 H 205 H (70-105) Calcium 6.3 L (8.4-10.2) mg/dL
[2017-08-29] MEDS: SODIUM BICARBONATE PO SCH ×2 (20:41→21:54)
[2017-08-29] MEDS: LEVEMIR SUB-Q SCH (21:51)
[2017-08-29] MEDS: TUMS PO SCH (21:52)
[2017-08-30] MEDS: APRESOLINE PO SCH ×3 (02:26→18:00)
[2017-08-30 06:06] LABS: Basophils % (Auto) 0.7 % (0.0-1.8); Eosinophils % (Auto) 2.5 % (0.0-4.3); Hematocrit 23.1 % (30.3-42.9); Hemoglobin 7.8 gm/dl (10.1-14.3); Mean Corpuscular HGB Conc 34 % (30-34); Mean Corpuscular Hemoglobin 29 pg (28-32); Mean Corpuscular Volume 85 fl (79-97); Platelet Count 247 K/mm3 (140-440); Red Blood Count 2.73 M/mm3 (3.65-5.03); Red Cell Distribution Width 18.6 % (13.2-15.2); White Blood Count 6.7 K/mm3 (4.5-11.0)
[2017-08-30 06:26] LABS: Albumin 3.1 g/dL (3.9-5); Bilirubin,Total 0.2 mg/dL (0.1-1.2); Calcium 7.4 mg/dL (8.4-10.2); Magnesium 1.7 mg/dL (1.7-2.3); Potassium 3.7 mmol/L (3.6-5.0); Total Protein 6.3 g/dL (6.3-8.2)
[2017-08-30] MEDS: NOVOLOG SUB-Q SCH ×3 (07:30→16:30)
[2017-08-30] MEDS: SODIUM BICARBONATE PO SCH ×3 (09:22→21:25)
[2017-08-30] MEDS: TUMS PO SCH ×2 (10:57→21:25)
[2017-08-30] MEDS: NORVASC PO SCH (10:57)
[2017-08-30] MEDS: COREG PO SCH ×2 (10:58→21:25)
[2017-08-30] MEDS: HEPARIN SUB-Q SCH ×2 (10:59→21:26)
--- NOTE | 2017-08-30 12:29 | Progress Note ---
Assessment and Plan Assessment and plan: 67 y/o Female with Hx of Htn CKD stg5 going on to ESRD comes in for feeling Dizzy.Went to her pcp and was found to have Mp of 230/130.Was sent here for Eval.Cesar Nephshanique;nithin notes patient is due for vascath as out patient and possible HD KRYSTAL. Sob present. No Chest pain - Hypertensive emergency Optimize blood pressure medications - Hyperkalemia corrected Was given Kayexalate and Clacium gluconate in Er, continue dialysis - ESRD needing dialysis She received emergent dialysis sp vas cath, started HD on 08/29 Awaiting placements and chair time in outpatient hemodialysis - IDDM (insulin dependent diabetes mellitus) SSI and Cont Home insulin dose coverage - Elevated troponin level Sec to ESRD, denies any chest pain 2d echo showed preserved EF, no further workup required - Mixed hyperlipidemia Added Fenofibrate -DVT prophylaxis On Heparin History Interval history: Review of systems Constitutional: No fevers, no malaise, no joint pains CVS: No chest pain, no orthopnea, no dyspnea on exertion, no pedal edema GI: No abdominal pain, no diarrhea, no vomiting, no constipation Respiratory: No shortness of breath, no wheezing, no coughing Hospitalist Physical - Physical exam Narrative exam: General appearance: Present: no acute distress, well-nourished - EENT Eyes: Present: PERRL ENT: hearing intact, clear oral mucosa - Neck Neck: Present: supple, normal ROM - Respiratory Respiratory effort: normal Respiratory: bilateral: CTA - Cardiovascular Heart Sounds: Present: S1 & S2. Absent: rub, click - Extremities Extremities: pulses symmetrical, No edema Peripheral Pulses: within normal limits - Abdominal General gastrointestinal: Present: soft, non-tender, non-distended, normal bowel sounds Female genitourinary: Present: normal - Integumentary Integumentary: Present: clear, warm, dry - Musculoskeletal Musculoskeletal: gait normal, strength equal bilaterally - Psychiatric Psychiatric: appropriate mood/affect, intact judgment & insight - Neurologic Neurologic: CNII-XII intact, moves all extremities - Constitutional Vitals: Temp Pulse Resp BP Pulse Ox 99.2 F 82 18 153/64 97 08/29/17 23:28 08/30/17 11:17 08/29/17 23:28 08/30/17 11:17 08/29/17 23:28 General appearance: Present: no acute distress, well-nourished Results - Labs CBC & Chem 7: 08/30/17 04:49 08/30/17 04:49 Labs: Laboratory Last Values WBC 6.7 K/mm3 (4.5-11.0) 08/30/17 04:49 RBC 2.73 M/mm3 (3.65-5.03) L 08/30/17 04:49 Hgb 7.8 gm/dl (10.1-14.3) L 08/30/17 04:49 Hct 23.1 % (30.3-42.9) L 08/30/17 04:49 MCV 85 fl (79-97) 08/30/17 04:49 MCH 29 pg (28-32) 08/30/17 04:49 MCHC 34 % (30-34) 08/30/17 04:49 RDW 18.6 % (13.2-15.2) H 08/30/17 04:49 Plt Count 247 K/mm3 (140-440) 08/30/17 04:49 Lymph % (Auto) 18.6 % (13.4-35.0) 08/30/17 04:49 [place] % (Auto) 8.6 % (0.0-7.3) H 08/30/17 04:49 Eos % (Auto) 2.5 % (0.0-4.3) 08/30/17 04:49 Baso % (Auto) 0.7 % (0.0-1.8) 08/30/17 04:49 Lymph # 1.2 K/mm3 (1.2-5.4) 08/30/17 04:49 [place] # 0.6 K/mm3 (0.0-0.8) 08/30/17 04:49 Eos # 0.2 K/mm3 (0.0-0.4) 08/30/17 04:49 Baso # 0.0 K/mm3 (0.0-0.1) 08/30/17 04:49 Seg Neutrophils % 69.6 % (40.0-70.0) 08/30/17 04:49 Seg Neutrophils # 4.6 K/mm3 (1.8-7.7) 08/30/17 04:49 Sodium 140 mmol/L (137-145) 08/30/17 04:49 Potassium 3.7 mmol/L (3.6-5.0) D 08/30/17 04:49 Chloride 103.0 mmol/L (98-107) 08/30/17 04:49 Carbon Dioxide 19 mmol/L (22-30) L 08/30/17 04:49 Anion Gap 22 mmol/L 08/30/17 04:49 BUN 58 mg/dL (7-17) H 08/30/17 04:49 Creatinine 7.3 mg/dL (0.7-1.2) H 08/30/17 04:49 Estimated GFR 7 ml/min 08/30/17 04:49 BUN/Creatinine Ratio 8 % 08/30/17 04:49 Glucose 105 mg/dL (65-100) H 08/30/17 04:49 POC Glucose 123 (70-105) H 08/30/17 08:32 Hemoglobin A1c 6.7 % (4-6) H 08/26/17 17:12 Calcium 7.4 mg/dL (8.4-10.2) L D 08/30/17 04:49 Phosphorus 3.30 mg/dL (2.5-4.5) 08/29/17 19:50 Magnesium 1.70 mg/dL (1.7-2.3) 08/30/17 04:49 Total Bilirubin 0.20 mg/dL (0.1-1.2) 08/30/17 04:49 AST 11 units/L (5-40) 08/30/17 04:49 ALT 6 units/L (7-56) L 08/30/17 04:49 Alkaline Phosphatase 119 units/L (35-129) 08/30/17 04:49 Troponin T 0.058 ng/mL (0.00-0.029) H D 08/26/17 23:09 Total Protein 6.3 g/dL (6.3-8.2) 08/30/17 04:49 Albumin 3.1 g/dL (3.9-5) L 08/30/17 04:49 Albumin/Globulin Ratio 1.0 % 08/30/17 04:49 Triglycerides 343 mg/dL (2-149) H 08/26/17 17:12 Cholesterol 175 mg/dL (50-199) 08/26/17 17:12 LDL Cholesterol Direct 79 mg/dL (50-130) 08/26/17 17:12 HDL Cholesterol 28 mg/dL (40-59) L 08/26/17 17:12 Cholesterol/HDL Ratio 6.25 % 08/26/17 17:12 PTH Intact 294.7 pg/mL (15-65) H 08/29/17 19:50 Hep Bs Antigen Reactive (Negative) 08/29/17 19:50 Hepatitis C Antibody Reactive (NonReactive) A 08/29/17 19:50
[2017-08-30] MEDS ORDERED: NACL 0.9% 100 ML IV PRN ×2 (14:49→20:10)
--- NOTE | 2017-08-30 14:53 | Progress Note ---
Assessment and Plan Impression * End-stage renal disease on maintenance hemodialysis * Accelerated hypertension * Hyperkalemia * Metabolic acidosis most likely secondary to ESRD * Anemia secondary to ESRD * Diabetes Recommendations * Hemodialysis was initiated yesterday. Patient tolerated the procedure well. * Shall schedule for gentle dialysis today and tomorrow * Her blood pressure is under better control * Hyperkalemia has been corrected * Epogen with dialysis * awaiting arrangements for outpatient dialysis clinic * Okay to discharge patient home after outpatient dialysis has been arranged Subjective Date of service: 08/30/17 Principal diagnosis: Hypertensive emergency, ESRD commenceing HD Interval history: Patient feels comfortable today. She had a PermCath placed yesterday and hemodialysis was initiated. Tolerated dialysis well. Denies any shortness of breath. No nausea or vomiting. Objective - Vital Signs Vital signs: Vital Signs - 12hr 08/30/17 08/30/17 08/30/17 05:00 10:57 10:58 Pulse Rate 81 80 80 Blood Pressure 153/64 153/64 08/30/17 11:17 Pulse Rate 82 Blood Pressure 153/64 - General Appearance General appearance: well-developed, well-nourished, appears stated age EENT: PERRL, mucous membranes moist Neck: no JVD, no thyromegaly, no carotid bruit, supple, other (right IJ PermCath in place) Respiratory: Present: Clear to Ascultation Cardiology: regular Gastrointestinal: normal, normoactive bowel sounds Integumentary: no rash, other (no edema) - Lab 08/30/17 04:49 08/30/17 04:49 Most recent lab results Calcium 7.4 mg/dL (8.4-10.2) L D 08/30/17 04:49 Phosphorus 3.30 mg/dL (2.5-4.5) 08/29/17 19:50 Magnesium 1.70 mg/dL (1.7-2.3) 08/30/17 04:49
[2017-08-30] MEDS ORDERED: HEPARIN ONE (17:45)
[2017-08-30] MEDS ORDERED: NACL 0.9 (PRIMING MACHINE ONLY DIALYSIS) MC ONE (17:47)
[2017-08-30] MEDS ORDERED: HEPARIN IV PRN (20:10)
[2017-08-30] MEDS: LEVEMIR SUB-Q SCH (21:24)
[2017-08-30] MEDS: MONISTAT VG SCH (21:26)
[2017-08-31] MEDS: APRESOLINE PO SCH ×3 (02:55→21:11)
[2017-08-31] MEDS: NOVOLOG SUB-Q SCH ×2 (09:00→14:34)
[2017-08-31] MEDS: SODIUM BICARBONATE PO SCH ×3 (09:38→21:11)
[2017-08-31] MEDS: HEPARIN SUB-Q SCH ×2 (10:39→21:11)
[2017-08-31] MEDS: TUMS PO SCH ×2 (10:40→21:11)
--- NOTE | 2017-08-31 11:58 | Progress Note ---
Assessment and Plan Assessment and plan: 67 y/o Female with Hx of Htn CKD stg5 going on to ESRD comes in for feeling Dizzy.Went to her pcp and was found to have Mp of 230/130.Was sent here for Eval.[facility]phshan[facility];nithin notes patient is due for vascath as out patient and possible HD KRYSTAL. Sob present. No Chest pain - Hypertensive emergency Optimize blood pressure medications - Hyperkalemia corrected Was given Kayexalate and Clacium gluconate in Er, continue dialysis - ESRD needing dialysis She received emergent dialysis sp vas cath, started HD on 08/29 Awaiting placements and chair time in outpatient hemodialysis - IDDM (insulin dependent diabetes mellitus) SSI and Cont Home insulin dose coverage - Elevated troponin level Sec to ESRD, denies any chest pain 2d echo showed preserved EF, no further workup required - Mixed hyperlipidemia Added Fenofibrate -DVT prophylaxis On Heparin History Interval history: Review of systems Constitutional: No fevers, no malaise, no joint pains CVS: No chest pain, no orthopnea, no dyspnea on exertion, no pedal edema GI: No abdominal pain, no diarrhea, no vomiting, no constipation Respiratory: No shortness of breath, no wheezing, no coughing Hospitalist Physical - Physical exam Narrative exam: General appearance: Present: no acute distress, well-nourished - EENT Eyes: Present: PERRL ENT: hearing intact, clear oral mucosa - Neck Neck: Present: supple, normal ROM - Respiratory Respiratory effort: normal Respiratory: bilateral: CTA - Cardiovascular Heart Sounds: Present: S1 & S2. Absent: rub, click - Extremities Extremities: pulses symmetrical, No edema Peripheral Pulses: within normal limits - Abdominal General gastrointestinal: Present: soft, non-tender, non-distended, normal bowel sounds Female genitourinary: Present: normal - Integumentary Integumentary: Present: clear, warm, dry - Musculoskeletal Musculoskeletal: gait normal, strength equal bilaterally - Psychiatric Psychiatric: appropriate mood/affect, intact judgment & insight - Neurologic Neurologic: CNII-XII intact, moves all extremities - Constitutional Vitals: Temp Pulse Resp BP Pulse Ox 98.7 F 81 18 140/68 95 08/31/17 05:52 08/31/17 05:52 08/31/17 05:52 08/31/17 05:52 08/31/17 05:52 General appearance: Present: no acute distress, well-nourished Results - Labs CBC & Chem 7: 08/30/17 04:49 08/30/17 04:49 Labs: Laboratory Last Values WBC 6.7 K/mm3 (4.5-11.0) 08/30/17 04:49 RBC 2.73 M/mm3 (3.65-5.03) L 08/30/17 04:49 Hgb 7.8 gm/dl (10.1-14.3) L 08/30/17 04:49 Hct 23.1 % (30.3-42.9) L 08/30/17 04:49 MCV 85 fl (79-97) 08/30/17 04:49 MCH 29 pg (28-32) 08/30/17 04:49 MCHC 34 % (30-34) 08/30/17 04:49 RDW 18.6 % (13.2-15.2) H 08/30/17 04:49 Plt Count 247 K/mm3 (140-440) 08/30/17 04:49 Lymph % (Auto) 18.6 % (13.4-35.0) 08/30/17 04:49 [place] % (Auto) 8.6 % (0.0-7.3) H 08/30/17 04:49 Eos % (Auto) 2.5 % (0.0-4.3) 08/30/17 04:49 Baso % (Auto) 0.7 % (0.0-1.8) 08/30/17 04:49 Lymph # 1.2 K/mm3 (1.2-5.4) 08/30/17 04:49 [place] # 0.6 K/mm3 (0.0-0.8) 08/30/17 04:49 Eos # 0.2 K/mm3 (0.0-0.4) 08/30/17 04:49 Baso # 0.0 K/mm3 (0.0-0.1) 08/30/17 04:49 Seg Neutrophils % 69.6 % (40.0-70.0) 08/30/17 04:49 Seg Neutrophils # 4.6 K/mm3 (1.8-7.7) 08/30/17 04:49 Sodium 140 mmol/L (137-145) 08/30/17 04:49 Potassium 3.7 mmol/L (3.6-5.0) D 08/30/17 04:49 Chloride 103.0 mmol/L (98-107) 08/30/17 04:49 Carbon Dioxide 19 mmol/L (22-30) L 08/30/17 04:49 Anion Gap 22 mmol/L 08/30/17 04:49 BUN 58 mg/dL (7-17) H 08/30/17 04:49 Creatinine 7.3 mg/dL (0.7-1.2) H 08/30/17 04:49 Estimated GFR 7 ml/min 08/30/17 04:49 BUN/Creatinine Ratio 8 % 08/30/17 04:49 Glucose 105 mg/dL (65-100) H 08/30/17 04:49 POC Glucose 369 (70-105) H 08/30/17 12:21 Hemoglobin A1c 6.7 % (4-6) H 08/26/17 17:12 Calcium 7.4 mg/dL (8.4-10.2) L D 08/30/17 04:49 Phosphorus 3.30 mg/dL (2.5-4.5) 08/29/17 19:50 Magnesium 1.70 mg/dL (1.7-2.3) 08/30/17 04:49 Total Bilirubin 0.20 mg/dL (0.1-1.2) 08/30/17 04:49 AST 11 units/L (5-40) 08/30/17 04:49 ALT 6 units/L (7-56) L 08/30/17 04:49 Alkaline Phosphatase 119 units/L (35-129) 08/30/17 04:49 Troponin T 0.058 ng/mL (0.00-0.029) H D 08/26/17 23:09 Total Protein 6.3 g/dL (6.3-8.2) 08/30/17 04:49 Albumin 3.1 g/dL (3.9-5) L 08/30/17 04:49 Albumin/Globulin Ratio 1.0 % 08/30/17 04:49 Triglycerides 343 mg/dL (2-149) H 08/26/17 17:12 Cholesterol 175 mg/dL (50-199) 08/26/17 17:12 LDL Cholesterol Direct 79 mg/dL (50-130) 08/26/17 17:12 HDL Cholesterol 28 mg/dL (40-59) L 08/26/17 17:12 Cholesterol/HDL Ratio 6.25 % 08/26/17 17:12 PTH Intact 294.7 pg/mL (15-65) H 08/29/17 19:50 Hep Bs Antigen Reactive (Negative) 08/29/17 19:50 Hepatitis C Antibody Reactive (NonReactive) A 08/29/17 19:50
--- NOTE | 2017-08-31 12:51 | Vascular Lab Report ---
MISCELLANEOUS VESSEL IDENTIFICATION: COMMENTS ON THE SCAN: The right internal jugular vein was identified and under real-time ultrasound guidance was cannulated. IMPRESSION: Successful ultrasound guided vein cannulation.
--- NOTE | 2017-08-31 12:52 | Vascular Lab Report ---
Upper extremity vein mapping Reason for exam: Preoperative evaluation for hemodialysis access Comments: On the right, the cephalic vein is not usable from wrist to shoulder. The basilic vein is not usable from wrist to shoulder. The brachial and radial arteries are patent. The radial artery is small. On the left, the cephalic vein is not usable from wrist to shoulder. The basilic vein is usable from wrist to shoulder. The brachial and radial arteries are patent. The radial artery is small. Impression: Both cephalic veins are not suitable for use as AV access sites. Both basilic veins are not suitable for use as AV access sites. Arteries are small.
--- NOTE | 2017-08-31 13:23 | Progress Note ---
Assessment and Plan Patient status post right internal jugular vein permacath. We'll check a vein mapping of the upper extremity is in preparation for an AV fistula creation. We had a long discussion about long-term hemodialysis access. We discussed the risks benefits and alternatives to AV fistula creation. Patient states understanding and agrees to comply. Results from the vein mapping will help to determine whether the patient is a better candidate for fistula versus an AV graft. There is limited surgical availability due to the holiday scheduling. If the patient is discharged prior to long-term AV access creation, she will follow up in our office and this will be scheduled as an outpatient. - Patient Problems (1) ESRD (end stage renal disease) Current Visit: Yes Status: Acute Subjective Date of service: 08/31/17 Principal diagnosis: Hypertensive emergency, ESRD commenceing HD Interval history: Patient is awake and alert without specific complaint at present. Objective - Constitutional Vitals: Vital Signs - 12hr 08/31/17 08/31/17 04:00 05:52 Temperature 98.7 F Pulse Rate 80 81 Respiratory 18 Rate Blood Pressure 140/68 O2 Sat by Pulse 95 Oximetry General appearance: Present: no acute distress - EENT Eyes: EOM intact ENT: hearing intact - Neck Neck: supple (right internal jugular vein permacath in place without erythema or drainage appreciated) Extremities: no ischemia, normal temperature - Neurologic Neurologic: no focal deficits - Psychiatric Psychiatric: appropriate mood/affect, intact judgment & insight, cooperative - Labs CBC & Chem 7: 08/30/17 04:49 08/30/17 04:49
--- NOTE | 2017-08-31 13:58 | Progress Note ---
Assessment and Plan Impression * End-stage renal disease on maintenance hemodialysis * Accelerated hypertension * Hyperkalemia * Metabolic acidosis most likely secondary to ESRD * Anemia secondary to ESRD * Diabetes Recommendations * Patient had uneventful hemodialysis yesterday. * She is scheduled for her third treatment today * Shall switch her over to 3 days a week dialysis treatment going forward. * Her blood pressure is under better control * Hyperkalemia has been corrected * Epogen with dialysis * awaiting arrangements for outpatient dialysis clinic * Patient noted to have both hepatitis B surface antigen as well as hepatitis C antibody. Patient informed about the findings * Okay to discharge patient home after outpatient dialysis has been arranged Subjective Date of service: 08/31/17 Principal diagnosis: Hypertensive emergency, ESRD commenceing HD Interval history: Patient feels comfortable today. Uneventful hemodialysis yesterday . Tolerated dialysis well. Denies any shortness of breath. No nausea or vomiting. Objective - Vital Signs Vital signs: Vital Signs - 12hr 08/31/17 08/31/17 04:00 05:52 Temperature 98.7 F Pulse Rate 80 81 Respiratory 18 Rate Blood Pressure 140/68 O2 Sat by Pulse 95 Oximetry - General Appearance General appearance: well-developed, well-nourished, appears stated age EENT: PERRL, mucous membranes moist Neck: no JVD, no thyromegaly, no carotid bruit, supple, other (right IJ PermCath in place) Respiratory: Present: Clear to Ascultation Cardiology: regular, normal heart rate Gastrointestinal: normal, normoactive bowel sounds Integumentary: no rash, other (no edema) - Lab 08/30/17 04:49 08/30/17 04:49 Most recent lab results Calcium 7.4 mg/dL (8.4-10.2) L D 08/30/17 04:49 Phosphorus 3.30 mg/dL (2.5-4.5) 08/29/17 19:50 Magnesium 1.70 mg/dL (1.7-2.3) 08/30/17 04:49
[2017-08-31] MEDS: NORVASC PO SCH (14:36)
[2017-08-31] MEDS: COREG PO SCH ×2 (14:39→21:12)
[2017-08-31] MEDS: LEVEMIR SUB-Q SCH (21:10)
[2017-08-31] MEDS: MONISTAT VG SCH (21:18)
[2017-09-01] MEDS: APRESOLINE PO SCH ×3 (02:27→18:03)
[2017-09-01] MEDS: NOVOLOG SUB-Q SCH ×4 (07:37→18:00)
[2017-09-01] MEDS: COREG PO SCH (09:26)
[2017-09-01] MEDS: NORVASC PO SCH (09:26)
[2017-09-01] MEDS: SODIUM BICARBONATE PO SCH ×2 (09:26→14:26)
[2017-09-01] MEDS: TUMS PO SCH (09:26)
[2017-09-01] MEDS: HEPARIN SUB-Q SCH (09:27)
--- NOTE | 2017-09-01 09:43 | Progress Note ---
Assessment and Plan Pt doing well s/p RIJ PC. Vein mapping reviewed. Bilat cephalic and basilic veins are small. Pt will likely need an avg for correction access. Limited surgical availability for elective procedures given holiday schedule. She can call our office to schedule an outpt AVG for the next 1-2 weeks. - Patient Problems (1) ESRD (end stage renal disease) Current Visit: Yes Status: Acute Subjective Date of service: 09/01/17 Principal diagnosis: Hypertensive emergency, ESRD commenceing HD Interval history: Pt awake and alert without complaint at present. Objective - Constitutional Vitals: Vital Signs - 12hr 08/31/17 09/01/17 09/01/17 23:34 04:42 05:26 Temperature 98.3 F 98.8 F Pulse Rate 91 H 92 H 90 Respiratory 18 18 Rate Blood Pressure 145/64 137/63 O2 Sat by Pulse 97 98 Oximetry 09/01/17 09/01/17 09:25 09:26 Temperature Pulse Rate 97 H 97 H Respiratory Rate Blood Pressure 116/52 116/52 O2 Sat by Pulse Oximetry General appearance: Present: no acute distress - EENT Eyes: EOM intact ENT: hearing intact - Neck Neck: supple (RIJ PC) - Respiratory Respiratory effort: normal Extremities: no ischemia - Neurologic Neurologic: no focal deficits - Psychiatric Psychiatric: appropriate mood/affect, intact judgment & insight, cooperative - Labs CBC & Chem 7: 08/30/17 04:49 08/30/17 04:49 Labs: Abnormal lab results 08/29/17 08/31/17 08/31/17 Range/Units 19:37 12: 20:50 POC Glucose 168 H 235 H (70-105) Ionized Calcium 4.1 L (4.8-5.6) mg/dL 08/31/17 09/01/17 Range/Units 21:15 07:38 POC Glucose 258 H 50 L (70-105) Ionized Calcium (4.8-5.6) mg/dL
[2017-09-01] MEDS ORDERED: NACL 0.9% 100 ML IV PRN (13:38)
--- NOTE | 2017-09-01 13:38 | Progress Note ---
Assessment and Plan Impression * End-stage renal disease on maintenance hemodialysis * Accelerated hypertension * Hyperkalemia * Metabolic acidosis most likely secondary to ESRD * Anemia secondary to ESRD * Diabetes Recommendations * Patient had uneventful hemodialysis yesterday. * Shall maintain her on Mondays, Wednesdays and Fridays scheduled for now. * Heruremic symptoms has resolved * Her blood pressure is under better control * Hyperkalemia has been corrected * Epogen with dialysis * awaiting arrangements for outpatient dialysis clinic * Patient noted to have both hepatitis B surface antigen as well as hepatitis C antibody. Patient informed about the finding. Shall check a hepatitis C RNA * Okay to discharge patient home after outpatient dialysis has been arranged Subjective Date of service: 09/01/17 Principal diagnosis: Hypertensive emergency, ESRD commenceing HD Interval history: Patient feels better today. She does not have anymore nausea. Denies any shortness of breath. Objective - Vital Signs Vital signs: Vital Signs - 12hr 09/01/17 09/01/17 09/01/17 04:42 05:26 09:17 Temperature 98.8 F 99.2 F Pulse Rate 92 H 90 97 H Respiratory 18 16 Rate Blood Pressure 137/63 116/52 O2 Sat by Pulse 98 97 Oximetry 09/01/17 09/01/17 09/01/17 09:25 09:26 12:35 Temperature 99.3 F Pulse Rate 97 H 97 H 89 Respiratory 18 Rate Blood Pressure 116/52 116/52 133/57 O2 Sat by Pulse 96 Oximetry - General Appearance General appearance: well-developed, well-nourished, appears stated age EENT: PERRL, mucous membranes moist Neck: no JVD, no thyromegaly, no carotid bruit, supple, other (right IJ PermCath in place) Respiratory: Present: Clear to Ascultation Cardiology: regular, normal heart rate, S1S2, no murmurs Gastrointestinal: normal, normoactive bowel sounds Integumentary: no rash, other - Lab 08/30/17 04:49 08/30/17 04:49 Most recent lab results Calcium 7.4 mg/dL (8.4-10.2) L D 08/30/17 04:49 Phosphorus 3.30 mg/dL (2.5-4.5) 08/29/17 19:50 Magnesium 1.70 mg/dL (1.7-2.3) 08/30/17 04:49
[2017-09-01 20:16] VITALS: BP 132/67
[2017-09-02] MEDS ORDERED: NORVASC PO SCH (10:00)
--- NOTE | 2017-09-03 15:47 | Discharge Summary ---
Providers - Providers Date of Admission: 08/26/17 19:47 Attending physician: SKY HERNANDEZ MD 08/26/17 Consult to Case Management [CONS] Routine Services Needed at Discharge: Other Notified:: Case management Comment:: dialysis placement: [facility]. 08/26/17 19:47 Consult to Physician [CONS] Routine Consulting Provider: JANUARY MCCLENDON Reason For Exam: ESRD Place consult to:: Dr. Mcclendon Notified:: Charlotte CLEMENTE Phone number called:: Was contact made?: Yes If yes, spoke with:: Reyna-answering service Time called:: 09:11 08/26/17 20:27 Consult to Dietitian/Nutrition [CONS] Routine Physician Instructions: Reason For Exam: Reason for Consult: Diet education 08/26/17 20:32 Consult to Physician [CONS] Routine Consulting Provider: JESSICA NÚÑEZ Reason For Exam: permacath and fistula needed this admission Place consult to:: Dr. Núñez Notified:: Charlotte CLEMENTE Phone number called:: Was contact made?: Yes If yes, spoke with:: Ramesh-answering service- transferred to Dr. Dewey Time called:: 10:23 Primary care physician: MAYNOR PEÑA Hospitalization Condition: Stable Hospital course: 67 y/o Female with Hx of Htn CKD stg5 going on to ESRD comes in for feeling Dizzy.Went to her pcp and was found to have Mp of 230/130.Was sent here for Eval.Per Nephro;ogy notes patient is due for vascath as out patient and possible HD KRYSTAL. Sob present. She denied any chest pain. She receives dialysis catheter was started on dialysis emergently. And after outpatient dialysis chair time was set up she was then ready for discharge. Her medications optimize for hypertensive emergency. Electrolytes are corrected, she'll hyperkalemia was medically treated so she received dialysis. Her medications optimize for mixed hyperlipidemia. She is limited to have elevated troponin was due to end-stage renal disease 2-D echo showed preserved EF and no further workup was indicated. Discharge diagnosis - Hypertensive emergency - Hyperkalemia - ESRD needing dialysis - IDDM (insulin dependent diabetes mellitus) - Elevated troponin level - Mixed hyperlipidemia Disposition: - TO HOME OR SELFCARE Time spent for discharge: 33 minutes Core Measure Documentation - Palliative Care Palliative Care/ Comfort Measures: Not Applicable - Core Measures Any of the following diagnoses?: none Exam - Constitutional Vitals: Temp Pulse Resp BP Pulse Ox 98.7 F 93 H 18 132/67 97 09/01/17 19:52 09/01/17 19:52 09/01/17 19:52 09/01/17 19:52 09/01/17 19:52 General appearance: Present: no acute distress, well-nourished - EENT Eyes: Present: PERRL ENT: hearing intact, clear oral mucosa - Neck Neck: Present: supple, normal ROM - Respiratory Respiratory effort: normal Respiratory: bilateral: CTA - Cardiovascular Heart Sounds: Present: S1 & S2. Absent: rub, click - Extremities Extremities: pulses symmetrical, No edema Peripheral Pulses: within normal limits - Abdominal General gastrointestinal: Present: soft, non-tender, non-distended, normal bowel sounds Female genitourinary: Present: normal - Integumentary Integumentary: Present: clear, warm, dry - Musculoskeletal Musculoskeletal: gait normal, strength equal bilaterally - Psychiatric Psychiatric: appropriate mood/affect, intact judgment & insight - Neurologic Neurologic: CNII-XII intact, moves all extremities Plan Follow up with: MAYNOR PEÑA MD [Primary Care Provider] - 3-5 Days Prescriptions: Insulin Glargine,Hum.rec.anlog [Lantus] 25 units SQ QHS #1 vial Miconazole [Monistat Vag Suppos] 100 mg VG QHS #4 supp.vag amLODIPine [Norvasc] 5 mg PO DAILY #60 tablet Calcium Carbonate [Tums] 1,000 mg PO BID 30 Days tablet Carvedilol [Coreg] 6.25 mg PO BID #60 tablet hydrALAZINE [Apresoline TAB] 50 mg PO Q8H 30 Days tablet Insulin Aspart [NovoLOG 100 UNITS/ML VIAL] See Protocol SQ AC #1 vial oxyCODONE /ACETAMINOPHEN [Percocet 5/325 mg] 1 tab PO Q6H PRN #14 tablet PRN Reason: Pain, Moderate (4-6) Sodium Bicarbonate 650 mg PO TID #90 tablet
== END 2017-09-01 20:05 | disposition home or self-care (01) | DRG 673 ==
LOC: ED 16:33 → 4A 19:47 → 3A 09-01 11:34
PROVIDERS: ADMIT Internal Medicine; ATTEND Internal Medicine
PROC: 3E0234Z Introduction of Serum, Toxoid and Vaccine into Muscle, Percutaneous Approach (ICD-10-PCS; 2017-08-28)
PROC: 0JH63XZ Insertion of Tunneled Vascular Access Device into Chest Subcutaneous Tissue and Fascia, Percutaneous Approach (ICD-10-PCS; principal; 2017-08-29)
PROC: 02H633Z Insertion of Infusion Device into Right Atrium, Percutaneous Approach (ICD-10-PCS; 2017-08-29)
PROC: B244ZZZ Ultrasonography of Right Heart (ICD-10-PCS; 2017-08-29)
PROC: 5A1D70Z Performance of Urinary Filtration, Intermittent, Less than 6 Hours Per Day (ICD-10-PCS; 2017-08-29)
PROC: 5A1D70Z Performance of Urinary Filtration, Intermittent, Less than 6 Hours Per Day (ICD-10-PCS; 2017-08-30)
PROC: 5A1D70Z Performance of Urinary Filtration, Intermittent, Less than 6 Hours Per Day (ICD-10-PCS; 2017-08-31)
DX: I12.0 Hypertensive chronic kidney disease with stage 5 chronic kidney disease or end stage renal disease (principal); N18.6 End stage renal disease; I16.1 Hypertensive emergency; E87.2 Acidosis; E87.5 Hyperkalemia; E78.3 Hyperchylomicronemia; E83.51 Hypocalcemia; D63.1 Anemia in chronic kidney disease; E78.2 Mixed hyperlipidemia; E11.22 Type 2 diabetes mellitus with diabetic chronic kidney disease; Z82.49 Family history of ischemic heart disease and other diseases of the circulatory system; Z23 Encounter for immunization; Z79.4 Long term (current) use of insulin; Z79.899 Other long term (current) drug therapy
CPT/HCPCS: 36415; 36558; 71020; 76937; 77001; 80048; 80053; 80061; 82330; 82962; 83036; 83735; 83970; 84100; 84484; 85025; 86706; 86803; 87517; 87902; 90732; 93005; 93010; 93306; 94640; 96365; 96375; C1750; C1769; J0360; J0610; J0690; J1644; J1815; J1818; J2250; J3010; J7030; J7040; J7050